=== PATIENT | female | born 1955 | race Caucasian/White ===

== ENCOUNTER → 2020-03-15 | Outpatient (CLI) | payer MEDICARE ==
[~2020-03-15] MED LIST: ALBU8.5H; ASPI81TA26; ATOR80TA59; EZET10TA21; LISI-542; METO1TAB32; PANT20TA6
== END ==
LOC: M LABSMTC 10:59 → EDUNIT# 11:20
PROVIDERS: ATTEND Anesthesiology
DX: Z01.812 Encounter for preprocedural laboratory examination (principal); Z20.828 Contact with and (suspected) exposure to other viral communicable diseases
CPT/HCPCS: C9803; U0003

== ENCOUNTER 2020-03-20 06:49 | Day surgery (SDC) | payer MEDICARE ==
[~2020-03-20] VITALS: Ht 160 cm; Wt 101.6 kg
[~2020-03-20 06:49] MED LIST changes: +NS 1,000 ML IV ONE
[2020-03-20] MEDS ORDERED: propofoL 200 MG/20 ML VIAL As Ordered ONE ×2 (07:36→07:53)
--- NOTE | 2020-03-20 08:14 | ROOR ---
Patient Name: Marissa Luo Procedure Date: 03/20/2020 7:34 AM Date of : 1955 Age: 65 Room: [facility] Gender: Female Note Status: Finalized Procedure: Colonoscopy Indications: Chronic diarrhea, Hematochezia Providers: Roshan Gil MD Referring MD: EDGARDO MARTINEZ MD Requesting Provider: Medicines: Monitored Anesthesia Care Complications: No immediate complications. Procedure: Pre-Anesthesia Assessment: - Prior to the procedure, a History and Physical was performed, and patient medications and allergies were reviewed. The patient is competent. The risks and benefits of the procedure and the sedation options and risks were discussed with the patient. All questions were answered and informed consent was obtained. Patient identification and proposed procedure were verified by the physician, the nurse and the anesthesiologist in the procedure room. Mental Status Examination: alert and oriented. Airway Examination: normal oropharyngeal airway and neck mobility. Respiratory Examination: clear to auscultation. CV Examination: normal. Prophylactic Antibiotics: The patient does not require prophylactic antibiotics. Prior Anticoagulants: The patient has taken no previous anticoagulant or antiplatelet agents. ASA Grade Assessment: II - A patient with mild systemic disease. After reviewing the risks and benefits, the patient was deemed in satisfactory condition to undergo the procedure. The anesthesia plan was to use monitored anesthesia care (MAC). Immediately prior to administration of medications, the patient was re-assessed for adequacy to receive sedatives. The heart rate, respiratory rate, oxygen saturations, blood pressure, adequacy of pulmonary ventilation, and response to care were monitored throughout the procedure. The physical status of the patient was re-assessed after the procedure. The Colonoscope was introduced through the anus and advanced to the terminal ileum, with identification of the appendiceal orifice and IC valve. The colonoscopy was performed without difficulty. The patient tolerated the procedure well. The quality of the bowel preparation was good. The terminal ileum, ileocecal valve, appendiceal orifice, and rectum were photographed. Scope insertion time was 3 minutes. Scope withdrawal time was 9 minutes. The total duration of the procedure was 12 minutes. Findings: The perianal and digital rectal examinations were normal. The terminal ileum appeared normal. Normal mucosa was found in the entire colon. Biopsies for histology were taken with a cold forceps from the right colon, left colon and rectosigmoid colon for evaluation of microscopic colitis. Verification of patient identification for the specimen was done by the physician and nurse using the patient's name, date and medical record number. Multiple small and large-mouthed diverticula were found from sigmoid to ascending colon. There was no evidence of diverticular bleeding. Non-bleeding external and internal hemorrhoids were found during retroflexion. The hemorrhoids were medium-sized. Impression: - The examined portion of the ileum was normal. - Normal mucosa in the entire examined colon. Biopsied. - Moderate diverticulosis from sigmoid to ascending colon. There was no evidence of diverticular bleeding. - Non-bleeding external and internal hemorrhoids. Recommendation: - Patient has a contact number available for emergencies. The signs and symptoms of potential delayed complications were discussed with the patient. Return to normal activities tomorrow. Written discharge instructions were provided to the patient. - High fiber diet. - Continue present medications. - Use original regular Metamucil one tablespoon PO BID. - Await pathology results. - Repeat colonoscopy in 10 years for screening purposes and depending on clinical and functional status. - Telephone GI clinic for pathology results in 2 weeks. - Return to primary care physician. Roshan Gil MD Roshan Gil MD 03/20/2020 8:14:35 AM Electronically signed by Roshan Gil MD Number of Addenda: 0 Note Initiated On: 03/20/2020 7:34 AM Estimated Blood Loss: Estimated blood loss was minimal.
[2020-03-20 08:22] VITALS: BP 137/83
== END 2020-03-20 08:25 | disposition home or self-care (01) ==
LOC: M OPP 06:49
PROVIDERS: ATTEND Internal Medicine Gastroenterology
DX: K57.30 Diverticulosis of large intestine without perforation or abscess without bleeding (principal); K52.9 Noninfective gastroenteritis and colitis, unspecified; K92.1 Melena; K64.8 Other hemorrhoids; I25.10 Atherosclerotic heart disease of native coronary artery without angina pectoris; I10 Essential (primary) hypertension; F17.210 Nicotine dependence, cigarettes, uncomplicated; Z79.82 Long term (current) use of aspirin; Z79.899 Other long term (current) drug therapy; Z95.5 Presence of coronary angioplasty implant and graft

== ENCOUNTER → 2020-06-11 | Outpatient (CLI) | payer MEDICARE ==
[~2020-06-11] MED LIST changes: -NS 1,000 ML IV ONE
--- NOTE | 2020-06-11 13:08 | PFTRPT ---
Height: 63.50 Inches Weight: 225.00 Lbs BSA: 2.04 Diagnosis: J43.9 DATE: 06/11/2020 ORDERING PHYSICIAN: Dr. Tod Servin Pre and post bronchodilator studies have excellent technical quality. Forced vital capacity is reduced. FEV1 is in borderline proportion. Obstructive index is borderline as well. Expiratory limit of the flow-volume loop does suggest some degree of obstructive impairment. No significant bronchodilator response is identified. Total lung capacity mildly elevated. Residual volume does suggest air trapping. Diffusing capacity is normal. No hemoglobin available for correction. Airway resistance is minimally elevated with a concomitant decrease in airway conductance. IMPRESSION: Suspected degree of obstructive impairment with underlying air trapping. Please correlate clinically. MTDD
== END ==
LOC: M CARPUL 12:28
PROVIDERS: ATTEND Family Medicine
DX: J43.9 Emphysema, unspecified (principal)